=== PATIENT | female | born 1985 | race African-American/Black ===

== ENCOUNTER 2020-07-05 11:19 | Outpatient (REF) | payer OTHER, SELFPAY ==
--- NOTE | 2020-07-05 | US_ITS ---
EXAMINATION:US transvaginal, US pelvic complete CLINICAL INFORMATION: Reason for Exam PELVIC AND PERINEAL PAIN COMPARISON: No priors available. LMP: 06/05/2020 FINDINGS: UTERUS: Uterus is anteverted retroflexed. Size: 11.1 x 3.5 x 5.7 cm. Uterine mass: There is no uterine mass. Cervix: There are nabothian cysts otherwise Grossly unremarkable. Endometrium: No ultrasound evidence of endometrial lesion. endometrial thickness measures 0.9 cm ADNEXA: Normal Right ovary: Normal in size. Left ovary: Normal in size. FREE FLUID: Trace amount of free fluid. OTHER FINDINGS: None IMPRESSION: Normal pelvic ultrasound. No ultrasound explanation for patient's pain symptoms.
== END 2020-07-05 11:20 | disposition home or self-care (01) ==
LOC: HO.US 11:19
PROVIDERS: PCP Pediatrics; Visit Provider Pediatrics
DX: R10.2 Pelvic and perineal pain (principal); N97.9 Female infertility, unspecified
CPT/HCPCS: 76830; 76856

== ENCOUNTER 2023-04-09 09:43 | Outpatient (REF) | payer OTHER, SELFPAY ==
[2023-04-09 14:59] LABS: TSH reflex Free T4 7.53 uIU/mL (0.32-4.0); Vitamin D 25-OH Total 24.1 ng/mL (>30)
== END 2023-04-09 09:44 | disposition home or self-care (01) ==
LOC: HO.CHCLDS 09:43
PROVIDERS: Visit Provider Pediatrics
DX: E55.9 Vitamin D deficiency, unspecified (principal); E03.9 Hypothyroidism, unspecified
CPT/HCPCS: 36415; 82306; 84439; 84443

== ENCOUNTER 2024-05-20 10:04 | Outpatient (REF) | payer OTHER, SELFPAY ==
[2024-05-20 14:40] LABS: MANUAL DIFF FLAG NO
[2024-05-20 14:48] LABS: Basophils Percent Auto 0.5 % (0-2); Eosinophils Absolute Auto 0.3 X10*3/uL (0.0-0.4); Eosinophils Percent Auto 3.3 % (0-4); Hematocrit 40.2 % (37.0-47.0); Hemoglobin 13.2 g/dl (12.0-16.0); Imm Gran Abs Auto 0.02 X10*3/uL (0.00-0.03); Imm Gran Pct Auto 0.3 % (0.0-0.4); Lymphocytes Absolute Auto 2.4 X10*3/uL (1.2-4.9); Lymphocytes Percent Auto 30.5 % (20-40); Mean Corpuscular HGB Conc 32.8 g/dl (31.0-35.0); Mean Corpuscular Hemoglobin 29.1 pg (27.0-33.0); Mean Corpuscular Volume 88.5 fL (80.0-98.0); Mean Platelet Volume 11.8 fL (9.4-12.3); Monocytes Absolute Auto 0.5 X10*3/uL (0.1-1.2); Monocytes Percent Auto 6.4 % (2-11); Neutrophils Absolute Auto 4.7 x10*3/uL (2.0-8.3); Platelet Count 324 X10*3/uL (160-400); Red Blood Count 4.54 X10*6/uL (4.20-5.50); Red Cell Distribution Width 13.2 % (11.0-16.0)
[2024-05-20 15:11] LABS: Alanine Aminotransferase 43 U/L (0-31); Albumin Level 4.2 g/dL (3.5-5.0); Alkaline Phosphatase 61 U/L (39-117); Anion Gap 13 (12-20); Aspartate Amino Transferase 26 U/L (5-31); Bilirubin Direct 0.3 mg/dL (0.0-0.5); Bilirubin Total 0.8 mg/dL (0.0-1.0); Blood Urea Nitrogen 10 mg/dL (9-16); Calcium 9.5 mg/dL (8.4-10.2); Carbon Dioxide 27 mmol/L (22-29); Chloride 102 mmol/L (96-108); Cholesterol 194 mg/dL (<200); Estimated Glomerular Filt Rate > 60; Glucose Random 92 mg/dL (60-115); HDL Cholesterol 39 mg/dL (>40); LDL Cholesterol Calculated 136 mg/dL (<100); Potassium 3.5 mmol/L (3.3-5.1); Sodium 138 mmol/L (135-145); Total Protein 7.7 g/dL (6.5-8.0); Triglycerides 99 mg/dL (<150)
[2024-05-20 15:19] LABS: TSH reflex Free T4 3.42 uIU/mL (0.32-4.0); Vitamin D 25-OH Total 38.8 ng/mL (>30)
== END 2024-05-20 10:05 | disposition home or self-care (01) ==
LOC: HO.CHCLDS 10:04
PROVIDERS: Visit Provider Pediatrics
DX: R73.03 Prediabetes (principal); E03.9 Hypothyroidism, unspecified; E55.9 Vitamin D deficiency, unspecified
CPT/HCPCS: 36415; 80048; 80061; 80076; 82306; 84443; 85025

== ENCOUNTER 2024-12-07 10:14 | Outpatient (REF) | payer OTHER, SELFPAY ==
[2024-12-07 14:59] LABS: TSH reflex Free T4 3.11 uIU/mL (0.32-4.0)
== END 2024-12-07 10:15 | disposition home or self-care (01) ==
LOC: HO.CHCLDS 10:14
PROVIDERS: Visit Provider Pediatrics
DX: E03.9 Hypothyroidism, unspecified (principal)
CPT/HCPCS: 36415; 84443

== ENCOUNTER 2025-05-12 10:00 | Outpatient (REF) | payer OTHER, SELFPAY ==
--- OUTSIDE RECORDS SUMMARY | 2025-05-12 09:00 | XMS_ITS | Encounter Summary ---
Author Organization [employer] Address [address] [place] [id number] Care Team Providers Care Professional Wrestler Name Role Phone Ceci Tejeda MD Primary Care Provider [phone] Reason for Referral * Medications - Pending Review Specialty Diagnoses / Procedures Referred By Contac t Referred To Contact Diagnoses Obesity due to excess calories with serious comorbidity, unspecified class Ceci Tejeda MD [address] [place] [address] Phone: tel: fax: Referral ID Status Reason Start Date Expiration Date V isits Requested Visits Authorized [id number] Pending Review 1 1 Encounter Details Date Type Department Care Team (Latest Contact Info) Description 05/12/2025 9:00 AM EDT Office Visit [facility] [address] [place] [address] Ceci Tejeda MD [address] [place] [address] Obesity due to excess calories with serious comorbidity, unspecified class (Primary Dx); Acquired hypothyroidism Social History Tobacco Use Types Packs/Day Years Used Date Smoking Tobacco: Never Passive Smoke Exposure: Never Smokeless Tobacco: Never Alcohol Use Standard Drinks/Week Comments Defer 0 (1 standard drink = 0.6 oz pur e alcohol) Depression Answer Date Recorded Patient Health Questionnaire-9 Score 0 10/05/2024 Patient Health Questionnaire-9 Score 0 10/05/2024 Last PHQ-9: Questionnaire Data Not on file 0 10/05/2024 Housing Stability Answer Date Recorded What is your housing situation today? I have daly wood 10/05/[address] you li ve. Do you have problems with any of the following? None of the above 10/05/2024 Food Insecurity Answer Date Recorded Within the past 12 months, y ou worried that your food would run out before you got money to buy more: Never True 10/05/2024 Within the past 12 months,th e food you bought just didn't last and you didn't have enough money to get more: Never True Transportation Answer Date Recorded In the past 12 months, has l ack of transportation kept you from medical appts, meetings, work or from getting things needed for daily living? No 10/05/2024 Utilities Answer Date Recorded In the past 12 months, has t he electric, gas, oil or water company threatened to shut off services in your home? No 10/05/2024 Depression Answer Date Recorded Patient Health Questionnaire-2 Score 0 10/05/2024 Internet Access Answer Date Recorded Internet Access Q1 Yes 10/05/2024 Internet Access Q2 Not on file 10/05/2024 Comments Unknown Sex and Gender Information Value Date Recorded Sex Assigned at Female 07/15/2022 10:16 AM EDT Legal Sex Female 10:16 AM EDT Gender Identity Female 07/15/2022 10:16 AM EDT Sexual Orientation Straight 11/25/2022 10 :08 AM EDT documented as of this encounter Last Filed Vital Signs Vital Sign Reading Time Taken Comments Blood Pressure 112/90 05/12/2025 9:13 AM EDT Pulse 72 05/12/2025 9:13 AM EDT Temperature 36.6 C (97.8 F) 05/12/2025 9:13 AM EDT Respiratory Rate 20 05/12/2025 9:13 AM EDT Oxygen Saturation - - Inhaled Oxygen Concentration - - Weight 102 kg (224 lb) 05/12/2025 9:13 AM EDT Height - - Body Mass Index 40.19 12/07/2024 9:48 AM EDT documented in this encounter Progress Notes * Ceci Tejeda MD - 05/12/2025 9:00 AM EDT Subjective Patient ID: Annabelle Candelario is a 40 y.o. female who presents for f/u . Annabelle is a 40 y/o female patient of mine here for follow up weight and thyroid disorder,labs are up to date.was doing great with slow but steady weight loss on tirzepatide weekly w/o major side effects.She is walking a lot and is eating way more protein then before. Sometimes has to use simethicone for gas relief. Has been on 7.5 mg weekly zepbound for the past 5 months and has only lost 10 lbs so far. Review of Systems Constitutional: Negative for activity change, chills, fever and unexpected weight change. Respiratory: Negative for cough, shortness of breath and wheezing. Cardiovascular: Negative for chest pain, palpitations and leg swelling. Gastrointestinal: Negative for abdominal pain and blood in stool. Endocrine: Negative for polydipsia and polyuria. Genitourinary: Negative for decreased urine volume, difficulty urinating, dysuria and hematuria. Musculoskeletal: Negative for arthralgias and gait problem. Skin: Negative for color change and rash. Neurological: Negative for dizziness and headaches. Hematological: Negative for adenopathy. Psychiatric/Behavioral: Negative for dysphoric mood, hallucinations, sleep disturbance and suicidalideas. The patient is not nervous/anxious. Objective BP (!) 112/90 (BP Location: Left arm, Patient Position: Sitting, BP Cuff Size: Large adult) Pulse 72 Temp 97.8 ??F (36.6 ??C) (Oral) Resp 20 Wt 224 lb (102 kg) BMI 40.19 kg/m?? Physical Exam Vitals reviewed. Constitutional: General: Annabelle is not in acute distress. Appearance: Normal appearance. Annabelle is obese. Annabelle is not ill-appearing. HENT: Head: Normocephalic. Right Ear: Tympanic membrane and ear canal normal. Left Ear: Tympanic membrane and ear canal normal. Nose: Nose normal. Mouth/Throat: Mouth: Mucous membranes are moist. Pharynx: No oropharyngeal exudate or posterior oropharyngeal erythema. Eyes: Extraocular Movements: Extraocular movements intact. Conjunctiva/sclera: Conjunctivae normal. Pupils: Pupils are equal, round, and reactive to light. Cardiovascular: Rate and Rhythm: Normal rate and regular rhythm. Pulses: Normal pulses. Heart sounds: Normal heart sounds. Pulmonary: Effort: Pulmonary effort is normal. No respiratory distress. Breath sounds: Normal breath sounds. No wheezing. Abdominal: Palpations: Abdomen is soft. Musculoskeletal: General: Normal range of motion. Cervical back: Normal range of motion. Skin: General: Skin is warm. Capillary Refill: Capillary refill takes less than 2 seconds. Neurological: General: No focal deficit present. Mental Status: Annabelle is alert and oriented to person, place, and time. Psychiatric: Mood and Affect: Mood normal. Behavior: Behavior normal. Thought Content: Thought content normal. Judgment: Judgment normal. Assessment/Plan Diagnoses and all orders for this visit: Obesity due to excess calories with serious comorbidity, unspecified class Reviewed indications for pharmacotherapy with patient, which is treatment for patient w/ obesity ora patient with a BMI > 27 w/ CV risk factors who have failed lifestyle modifications alone. These are always prescribed in combination with ongoing lifestyle modification; and will be titrated up from the lowest dose. Will increase patient dose of Zepbound to 10 mg weekly given know efficacy. Reviewed mechanism of action with patient. Discussed side effects with patient: nausea, vomiting, diarrhea & risk of pancreatitis. No contraindications identified: , hx of pancreatitis, hx of medullary thyroid cancer or MEN 2. Patient has prior trial of phentermine/Topamax with (inadequate response, adverse reaction, or contraindication to phentermine with or without topiramate) Discussed calorie deficit, recommended reduction of 20-30% of maintenance calories; retail wireless sales representative referral offered. Recommended to decrease soda and sugary beverage consumption. Recommended at least 20 g per meal of protein to assist with satiety. Recommended at least 150 min/week of moderate intensity exercise. Comments: Hasnt lost more then 10 lbs in last 5 months. Continue exercising and eating well. Increase dose to10 mg weekly zepbound.RTC in 3 mos. Orders: - Tirzepatide-Weight Management (Zepbound) 10 MG/0.5ML solution auto-injector; Inject 0.5 mL (10 mg) under the skin 1 (one) time per week. Acquired hypothyroidism Comments: Tfts checked today. Adjust dose of levothyroxine if needed.Continue 150 mcg daily x now. Orders: - TSH W/Reflex to FT4; Future Other orders - cholecalciferol VITAMIN D (Vitamin D-3) 50 MCG (1999 UT) tablet; Take 1 tab orally daily - levothyroxine (Synthroid) 150 MCG tablet; Take 150 mcg orally every morning documented in this encounter Plan of Treatment Scheduled Orders Name Type Priority Associated Diagnoses Orde r Schedule TSH W/Reflex to FT4 Lab Routine Acquired hypothyroidism Expected: 05/12/2025 (Approximate), Expires: 05/12/2026 documented as of this encounter Visit Diagnoses Diagnosis Obesity due to excess calories with serious comorbidity, unspecified class- Primary Acquired hypothyroidism Unspecified hypothyroidism documented in this encounter Additional Health Concerns Assessment Noted Time PHQ-9 Depression Total Score: 0 10/05/19 25 9:23 AM EST documented as of this encounter Care Teams Professional Wrestler Relationship Specialty Start Date End Date Ceci Tejeda MD [address] [place] [address] PCP - General Family Medicine 09/15/18 documented as of this encounter
--- OUTSIDE RECORDS SUMMARY | 2025-05-12 11:10 | XMS_ITS | Encounter Summary ---
Author Organization [employer] Address [address] [place] [id number] Care Team Providers Care Check Clerk Name Role Phone Ceci Tejeda MD Primary Care Provider [phone] Reason for Visit * Reason Onset Date Comments Med Refill 04/25/2023 Encounter Details Date Type Department Care Team ([facility] Contact Info) Description 04/25/2023 Refill [facility] [address] [place] [address] Ceci Tejeda MD [address] [place] [address] Social History Tobacco Use Types Packs/Day Years Used Date Smoking Tobacco: Never Passive Smoke Exposure: Never Smokeless Tobacco: Never Alcohol Use Standard Drinks/Week Comments Defer 0 (1 standard drink = 0.6 oz pur e alcohol) Depression Answer Date Recorded Patient Health Questionnaire-9 Score 11 11/07/2022 Depression Answer Date Recorded Patient Health Questionnaire-2 Score 2 11/07/2022 Comments Unknown Sex and Gender Information Value Date Recorded Sex Assigned at Female 07/15/2022 10:16 AM EDT Legal Sex Female 10:16 AM EDT Gender Identity Female 07/15/2022 10:16 AM EDT Sexual Orientation Straight 11/25/2022 10 :08 AM EDT documented as of this encounter Plan of Treatment Not on file documented as of this encounter Visit Diagnoses Not on filedocumented in this encounter Additional Health Concerns Assessment Noted Time PHQ-9 Depression Total Score: 11 023 11:33 AM EST documented as of this encounter Care Teams Check Clerk Relationship Specialty Start Date End Date Ceci Tejeda MD [address] [place] [id number] PCP - General Family Medicine 09/15/18 documented as of this encounter
--- OUTSIDE RECORDS SUMMARY | 2025-05-12 11:10 | XMS_ITS | Clinical Summary ---
Author Organization [employer] Address [address] [place] [address] 7 [place] [address] Care Team Providers Care Cooperage Shop Supervisor Name Role Phone Ceci Tejeda MD Primary Care Provider [phone] Allergies No known active allergies Medications ibuprofen 800 MG tabletIndicatio ns:Dysmenorrhea Take 1 tablet (800 mg) by mouth 3 times daily. 90 tablet 02/03/20 25 Active topiramate 50 MG tablet Take 1 tab orally daily 90 tablet 1 02/10/20 25 Active cholecalciferol VITAMIN D (Vitamin D-3) 50 MCG (1999) tablet Take 1 tab orally daily 90 tablet 3 05/12/20 25 Active levothyroxine (Synthroid) 150 MCG tablet Take 150 mcg orally every morning 30 tablet 05/12/20 25 Active Tirzepatide-Carter ght Management (Zepbound) 10 MG/0.5ML solution auto-injectorIn dications:Obesi ty due to excess calories with serious comorbidity, unspecified class Inject 0.5 mL (10 mg) under the skin 1 (one) time per week. 2 mL 05/12/20 25 Active cholecalciferol VITAMIN D (Vitamin D-3) 50 MCG (1999 UT) tablet Take 1 tab orally daily 90 tablet 3 05/20/20 24 025 Discontinued(Re order (will not trigger notification to Pharmacy)) levothyroxine (Synthroid) 150 MCG tablet Take 150 mcg orally every morning 30 tablet 5 07/21/20 24 025 Discontinued(Re order (will not trigger notification to Pharmacy)) nitrofurantoin, macrocrystal-mo nohydrate, (Macrobid) 100 MG capsule Take 1 capsule orally bid for 3 days 6 capsule 10/05/19 25 025 Discontinued(Th erapy completed) Tirzepatide 7.5 MG/0.5ML solution auto-injectorIn dications:Class 3 severe obesity due to excess calories with body mass index (BMI) of 45.0 to 49.9 in adult, unspecified whether serious comorbidity present Inject 7.5 mg under the skin 1 (one) time per week. 2 mL 2 03/31/20 25 025 Discontinued(Re order (will not trigger notification to Pharmacy)) Tirzepatide 7.5 MG/0.5ML solution auto-injectorIn dications:Class 3 severe obesity due to excess calories with body mass index (BMI) of 45.0 to 49.9 in adult, unspecified whether serious comorbidity present Inject 7.5 mg under the skin 1 (one) time per week. 2 mL 2 04/26/20 25 025 Discontinued(Th erapy completed) Tirzepatide 10 MG/0.5ML solution auto-injectorIn dications:Obesi ty due to excess calories with serious comorbidity, unspecified class Inject 10 mg under the skin 1 (one) time per week. 2 mL 5 05/12/20 25 025 Discontinued(En tered in error) Active Problems Problem Noted Date Diagnosed Date Dysuria 07/02/2024 Raphael hematuria 07/02/2024 Swelling of vagina 07/02/2024 Prediabetes 02/11/2023 Adjustment disorder with anxious mood 07/03/2018 Acquired hypothyroidism 07/30/2012 Obesity 04/30/2012 Vitamin D deficiency 04/30/2012 Gallbladder calculus 04/30/2012 Gastroesophageal reflux disease 04/30/2012 Encounters Date Type Department Care Team Description 05/12/2025 9:00 AM EDT Office Visit [facility] [address] [place] [address] Ceci Tejeda MD Obesity due to excess calories with serious comorbidity, unspecified class (Primary Dx); Acquired hypothyroidism 05/12/2025 Travel 05/11/2025 Telephone [facility] [address] [place] [address] Ceci Tejeda MD chart prep 05/11/2025 Travel 05/06/2025 Telephone [facility] [address] [place] [address] Ceci Tejeda MD Prior Authorization 04/25/2025 Refill [facility] [address] [place] [address] Ceci Tejeda MD Class 3 severe obesity due to excess calories with body mass index (BMI) of 45.0 to 49.9 in adult, unspecified whether serious comorbidity present 03/31/2025 Orders Only [facility] [address] [place] [address] Ceci Tejeda MD Class 3 severe obesity due to excess calories with body mass index (BMI) of 45.0 to 49.9 in adult, unspecified whether serious comorbidity present 03/28/2025 Refill [facility] [address] [place] [address] Ceci Tejeda MD Class 3 severe obesity due to excess calories with body mass index (BMI) of 45.0 to 49.9 in adult, unspecified whether serious comorbidity present 02/28/2025 Refill [facility] [address] [place] [address] Ceci Tejeda MD Class 3 severe obesity due to excess calories with body mass index (BMI) of 45.0 to 49.9 in adult, unspecified whether serious comorbidity present 02/09/2025 11:00 AM EDT Office Visit [facility] [address] [place] [address] Ceci Tejeda MD Acquired hypothyroidism (Primary Dx); Dietary counseling; Exercise counseling; Class 3 severe obesity without serious comorbidity with body mass index (BMI) of 40.0 to 44.9 in adult, unspecified obesity type 02/09/2025 Travel from Last 3 Months Immunizations Immunization Administration Dates Next Due DTaP 05/16/1990, 8,1986,1985,1986 Hep B, Adolescent or Pediatric 10/16/1999,1998,03/15/1999 Hib (HbOC) 03/15/1989 IPV 05/16/1990, 8,1986,1985,1986 Influenza injectable quadriv alent IIV4 with preservative 11/07/2022,07/03/2018,11/24/2017 Influenza injectable quadriv alent preservative free 08/23/2021,06/27/2020,08/22/2016 Influenza, IIV3, injectable 05/31/2014 Influenza, Split (incl. adriana fied surface antigen) 07/30/2012 Influenza, seasonal, injecta ble, preservative free 07/21/2024 MMR 05/16/1990,06/15/1987 Pfizer Covid-19 Vaccine 12+ 07/21/2024 TD (adult), 2 Lf tetanus tox oid, preservative free, adsorbed 05/20/2001,05/22/2000 Tdap 03/30/2015 Varicella 06/30/2000,05/30/2000 Social History Tobacco Use Types Packs/Day Years Used Date Smoking Tobacco: Never Passive Smoke Exposure: Never Smokeless Tobacco: Never Tobacco Cessation:Counseling Given: Not Answered Alcohol Use Standard Drinks/Week Comments Defer 0 [...] Orientation Straight 11/25/2022 10 :08 AM EDT Last Filed Vital Signs Vital Sign Reading Time Taken Comments Blood Pressure 112/90 05/12/2025 9:13 AM EDT Pulse 72 05/12/2025 9:13 AM EDT Temperature 36.6 C (97.8 F) 05/12/2025 9:13 AM EDT Respiratory Rate 20 05/12/2025 9:13 AM EDT Oxygen Saturation 98% 12/07/2024 9:48 AM EDT Inhaled Oxygen Concentration - - Weight 102 kg (224 lb) 05/12/2025 9:13 AM EDT Height 159 cm (5' 2.6 ) 12/07/2024 9:48 AM EDT Body Mass Index 40.19 12/07/2024 9:48 AM EDT Plan of Treatment Health Maintenance Due Date Last Done Comments HIV Screening 1986 Family Planning (PISQ) 2001 HPV Vaccines (1 - 3-dose series) 2001 Hepatitis C Screening 2004 Dental Oral Exam 12/10/2024 06/11/2024, , 06/08/2018, Additional history exists Dental Prophylaxis 12/10/2024 06/11/2024, 0 06/08/2018, 12/04/2017, Additional history exists DTaP/Tdap/Td Vaccines (7 - Td or Tdap) 03/30/2025 03/30/2015, 05/20/2001, 05/22/2000, Additional history exists Influenza Vaccine (#1) 2025 , 11/07/2022, 08/23/2021, Additional history exists Diabetes: Hemoglobin A1C 05/20/2025 024, 11/07/2022, 08/24/2021, Additional history exists Dental X-Ray: Bitewings 06/12/2025 06/11/20 24, 01/20/2024, 03/31/2023, Additional history exists Alcohol/Substance Use Screening 10/05/2025 10/05/2024 Depression Screening 10/05/2025 10/05/2024, 10/05/19 25 SDOH Screening 10/05/2025 10/05/2024 Pap Smear 12/18/2025 12/18/2022, 03/03/2020 Dental X-Ray: Full Mouth 04/01/2026 03/31/2023, 11/14 Disability Screening 05/11/2026 05/11/2025 Tobacco Screening 05/12/2026 05/12/2025 Cervical Cancer Screening 12/19/2027 HPV/Cotest 12/19/2027 12/18/2022 Lipid Panel 05/20/2029 05/20/2024, 10/17, 08/24/2021, Additional history exists Zoster Vaccines (1 of 2) 2036 RSV Patients and Patients Aged 60 years or older (1 - 1-dose 75+ series) 2061 HIB Vaccines Completed 03/15/1989 IPV Vaccines Completed 05/16/1990, 0309/1987, 1986, Additional history exists Hepatitis B Vaccines Completed 10/16/1999, 05/16/1999, 03/15/1999 COVID-19 Vaccine Completed 07/21/2024, , 02/02/2021, Additional history exists Hepatitis A Vaccines Aged Out No long er eligible based on patient's age to complete this topic Meningococcal B Vaccine Aged Out No l onger eligible based on patient's age to complete this topic Meningococcal Vaccine Aged Out No sky milagro eligible based on patient's age to complete this topic Pneumococcal Vaccine: Pediatrics (0 to 5 Years) and At-Risk Patients (6 to 49) Years Aged Out No longer eligible based on patient's age to complete this topic RSV under 20 months Aged Out No longe r eligible based on patient's age to complete this topic Rotavirus Vaccines Aged Out No longer eligible based on patient's age to complete this topic Procedures Procedure Name Priority Date/Time Associated Diagnosis Comments PROPHYLAXIS - ADULT Routine 06/11/2024 9 :00 AM EDT BITEWINGS - 4 RADIOGRAPHIC IMAGES Routine 06/11/2024 9:00 AM EDT PERIODIC ORAL EVALUATION - ESTABLISHED PATIENT Routine 06/11/2024 9:00 AM EDT LIPID PANEL, STANDARD Routine 05/20/2024 10:14 AM EDT Prediabetes Acquired hypothyroidism Vitamin D deficiency POCT GLYCATED HEMOGLOBIN, TOTAL Routine 05/20/2024 9:31 AM EDT Prediabetes INTRAORAL - COMPLETE SERIES OF RADIOGRAPHIC IMAGES Routine 03/31/2023 3:00 PM EDT IMAGE-GUIDED PAP W/AGE BASED SCR,W/CT/NG/TRICH Routine 12/18/2022 12:15 PM EDT Gynecologic exam normal from Last 3 Months or Most Recently Relevant to Health Maintenance Results * (ABNORMAL) Lipid Panel, Standard (05/20/2024 10:14 AM EDT) Triglycerides 99 <150 mg/dL [facility] Comment:Desirable Triglyceri de: less than 150 mg/dLBorderline High Triglyceride 150-199 mg/dLHigh Triglyceride: 200-499 mg/dLVery High Triglyceride: greater than or equal to 5OO mg/dL Cholesterol 194 <200 mg/dL [facility] Comment:Desirable Cholestero l: less than 200 mg/dLBorderline High Cholesterol: 200-239 mg/dLHigh Cholesterol: greater than 239 mg/dL LDL Cholesterol Calculated 136(H) <100 mg/dL [facility] Comment:Desirable LDL: less than 100 mg/dLNear Optimal/Above Optimal LDL: 110- 129 mg/dLBorderline High LDL: 130-159 mg/dLHigh LDL: 160-189 mg/dLVery High LDL: greater than or equal to 190 mg/dL HDL Cholesterol 39(L) >40 mg/dL [facility] Comment:Desirable HDL: great er than 40 mg/dL Note: This HDL assay may give artificially low results in patients with liver disease. Blood Venous blood specimen / Unknown 05/20/2024 10:14 AM EDT 05/20/2024 2:34 PM EDT us Ceci Tejeda MD LAB BLOOD ORDERABLES Final Re sult [facility] [address] [place] [address] [phone] * (ABNORMAL) POCT HGB A1C (05/20/2024 9:31 AM EDT) Hemoglobin A1C 6.1(A) 4.0 - 6.0 % QC Media Lot # [id number] Lot# Expiration Date 42,62 Blood 05/20/2024 9:31 AM EDT us Ceci Tejeda MD POINT OF CARE TEST ENTER/EDIT ORDERABLES Final Result * Image-Guided Pap with Age-Based Screening??with CT/NG,??Trichomonas (12/18/2022 12:15 PM EDT) Comment [facility] Comment: This order for age-based cervical cancer and STI screening follows ACOG guidelines(PB 168, 140, UGO094). See individual assays for performing site location. Clinical Information: None given [employer] LMP: 11/27/22 [facility] [place] [employer] Prev. PAP: YES [facility] Prev. BX: NONE GIVEN [employer] SOURCE: Cervix [facility] Statement Of Adequacy: [facility] Comment: Satisfactory for evaluation. Endocervical/transformation zone component absent. Interpretation/Re sult: Negative for intraepithelial lesion or malignancy. [facility] Infection Shift in vaginal mor suggestive of bacterial vaginosis. [facility] COMMENT: This Pap test has been evaluated with computer assisted technology. [facility] Patient Information Coordinator: Qu Oxagent Comment: YP, CT(ASCP) CT screening location: [facility] [address] (Always Message) [employer] [place] [employer] Comment: EXPLANATORY NOTE: The Pap is a screening test for cervical cancer. It is not a diagnostic test and is subject to false negative and false positive results. It is most reliable when a satisfactory sample, regularly obtained, is submitted with relevant clinical findings and history, and when the Pap result is evaluated along with historic and current clinical information. HPV nRNA E6/E7 Not Detected Not Detected [facility] Comment: Methodology: Sole Cutter-Mediated Amplification This assay detects E6/E7 viral messenger RNA (mRNA) from 14 high-risk HPV types (16,18,31,33,35,39,45,51,52,56,58,59,66,68). Cervical sources are required for HPV testing. If a vaginal source from a patient who has had a total hysterectomy with removal of cervix was submitted, please contact the testing laboratory for alternative testing options. For additional information, please refer to http://gopogo.BCNX/faq/ZNM741e7 (This link if provided for information/ educational purposes only.) Chlamydia trachomatis RNA, TMA, Urogenital NOT DETECTED NOT DETECTED [facility] Neisseria gonorrhoeae RNA, TMA, Urogenital NOT DETECTED NOT DETECTED [facility] [place] [employer] (Always Message) [employer] [place] [employer] Comment: The analytical performance characteristics of this assay, when used to test SurePath(TM) specimens have been determined by [facility]. The modifications have not been cleared or approved by the FDA. This assay has been validated pursuant to the CLIA regulations and is used for clinical purposes. For additional information, please refer to https://gopogo.BCNX/faq/UBN219 (This link is being provided for information/ educational purposes only.) Trichomonas vaginalis, QL, TMA, PAP Vial NOT DETECTED NOT DETECTED [facility] Comment: The analytical performance characteristics of this assay have been determined by [facility]. The modifications have not been cleared or approved by the FDA. This assay has been validated pursuant to the CLIA regulations and is used for clinical purposes. For additional information, please refer to http://gopogo.BCNX/ faq/Trichomonastma (This link is being provided for information/ educational purposes only.) Specimen from uterine cervix (specimen) 12/18/2022 12:15 PM EDT 12/19/2022 11:13 PM EDT Ceci Tejeda MD LAB CYTOLOGY ORDERABLES Final Result [facility] [address], [place] [address] [facility] [address] [place] [address] from Last 3 Months or Most Recently Relevant to Health Maintenance Insurance [facility] DENTAL - HSN PARTIAL (MEDICAID) DENTAL - [employer] DENTAL PPO Care Teams Cooperage Shop Supervisor Relationship Specialty Start Date End Date Ceci Tejeda MD [address] [place] [address] PCP - General Family Medicine 09/15/18
--- OUTSIDE RECORDS SUMMARY | 2025-05-12 11:10 | XMS_ITS | Encounter Summary ---
Author Organization [employer] Address [address] [place] [address] [place] [address] Care Team Providers Care Monotypist Name Role Phone Ceci Tejeda MD Primary Care Provider [phone] Reason for Visit * Reason Onset Date Comments Prior Authorization 05/06/2025 Encounter Details Date Type Department Care Team ([facility] Contact Info) Description 05/06/2025 Telephone [facility] [address] [place] [address] Ceci Tejeda MD [address] [place] [address] Prior Authorization Social History Tobacco Use Types Packs/Day Years [...] AM EDT documented as of this encounter Miscellaneous Notes * Telephone Encounter - Twyla Rose LPN - 05/10/2025 9:47 AM EDT The PA will be finalized on the appointment scheduled for 05/12/25, to obtain additional documentation. Tc from pt stating script for Tirzepatide 7.5 MG/0.5ML solution auto-injector requires a prior authorization. * Telephone Encounter - Janine Holden - 05/06/2025 11:30 AM EDT Tc from pt stating script for Tirzepatide 7.5 MG/0.5ML solution auto-injector requires a prior authorization. documented in this encounter Plan of Treatment Not on file documented as of this encounter Visit Diagnoses Not on filedocumented in this encounter Additional Health Concerns Assessment Noted Time PHQ-9 Depression Total Score: 0 10/05/19 9:23 AM EST documented as of this encounter Care Teams Monotypist Relationship Specialty Start Date End Date Ceci Tejeda MD [address] [place] [address] PCP - General Family Medicine 09/15/18 documented as of this encounter
--- OUTSIDE RECORDS SUMMARY | 2025-05-12 11:10 | XMS_ITS | Encounter Summary ---
Author Organization [employer] Address [address] [place] [address] 7 [place] [address] Care Team Providers Care Valve Fitter Name Role Phone Ceci Tejeda MD Primary Care Provider [phone] Reason for Visit * Reason Onset Date Comments Med Refill 07/03/2024 Encounter Details Date Type Department Care Team ([facility] Contact Info) Description 07/03/2024 Refill [facility] [address] [place] [address] Ceci Tejeda MD [address] [place] [address] Dysmenorrhea Social History Tobacco Use Types Packs/Day Years Used Date Smoking Tobacco: Never Passive Smoke Exposure: Never Smokeless Tobacco: Never Alcohol Use Standard Drinks/Week Comments Defer 0 (1 standard drink = 0.6 oz pur e alcohol) Depression Answer Date Recorded Patient Health Questionnaire-9 Score 11 11/07/2022 Housing Stability Answer Date Recorded What is your housing situation today? I have daly wood 07/15/[address] you li ve. Do you have problems with any of the following? None of the above 07/15/2023 Food Insecurity Answer Date Recorded Within the past 12 months, y ou worried that your food would run out before you got money to buy more: Never True 07/15/2023 Within the past 12 months,th e food you bought just didn't last and you didn't have enough money to get more: Never True Transportation Answer Date Recorded In the past 12 months, has l ack of transportation kept you from medical appts, meetings, work or from getting things needed for daily living? No 07/15/2023 Utilities Answer Date Recorded In the past 12 months, has t he electric, gas, oil or water company threatened to shut off services in your home? No 07/15/2023 Depression Answer Date Recorded Patient Health Questionnaire-2 [...] as of this encounter Visit Diagnoses Diagnosis Dysmenorrhea documented in this encounter Additional Health Concerns Assessment Noted Time PHQ-9 Depression Total Score: 11 023 11:33 AM EST documented as of this encounter Care Teams Valve Fitter Relationship Specialty Start Date End Date Ceci Tejeda MD [address] [place] [address] PCP - General Family Medicine 09/15/18 documented as of this encounter
--- OUTSIDE RECORDS SUMMARY | 2025-05-12 11:10 | XMS_ITS | Encounter Summary ---
Author Organization [employer] Address [address] [place] [address] [address] [place] [address] Care Team Providers Care Occ Ther Name Role Phone Ceci Tejeda MD Primary Care Provider [phone] Reason for Visit * Reason Onset Date Comments Med Refill 03/28/2025 Encounter Details Date Type Department Care Team ([facility] Contact Info) Description 03/28/2025 [facility]ill [facility] [address] [place] [address] Ceci Tejeda MD [address] [place] [address] Class 3 severe obesity due to excess calories with body mass index (BMI) of 45.0 to 49.9 in adult, unspecified whether serious comorbidity present Social History Tobacco Use Types Packs/Day Years [...] as of this encounter Visit Diagnoses Diagnosis Class 3 severe obesity due to excess calories with body mass index (BMI) of 45.0 to 49.9 in adult, unspecified whether serious comorbidity present documented in this encounter Additional Health Concerns Assessment Noted Time PHQ-9 Depression Total Score: 0 10/05/19 25 9:23 AM EST documented as of this encounter Care Teams Occ Ther Relationship Specialty Start Date End Date Ceci Tejeda MD [address] [place] [address] PCP - General Family Medicine 09/15/18 documented as of this encounter
--- OUTSIDE RECORDS SUMMARY | 2025-05-12 11:10 | XMS_ITS | Encounter Summary ---
Author Organization [employer] Address [address] [place] [address] [address] [place] [address] Care Team Providers Care Supervisor Bottle Machines Name Role Phone Ceci Tejeda MD Primary Care Provider [phone] Encounter Details Date Type Department Care Team (Latest Contact Info) Description 05/12/2025 Travel Social History Tobacco Use Types Packs/Day Years [...] documented as of this encounter Care Teams Supervisor Bottle Machines Relationship Specialty Start Date End Date Ceci Tejeda MD [address] [place] [address] PCP - General Family Medicine 09/15/18 documented as of this encounter
--- OUTSIDE RECORDS SUMMARY | 2025-05-12 11:10 | XMS_ITS | Encounter Summary ---
Author Organization [employer] Address [address] [place] [address] [place] [address] Care Team Providers Care Edm Operator Name Role Phone Ceci Tejeda MD Primary Care Provider [phone] Reason for Visit * Reason Onset Date Comments Med Refill 03/19/2023 Encounter Details Date Type Department Care Team ([facility] st Contact Info) Description 03/19/2023 Refill [facility]EDS [address] [place] [address] Ceci Tejeda MD [address] [place] [address] Dysmenorrhea Social History Tobacco Use Types Packs/Day Years Used Date Smoking Tobacco: Never Passive Smoke Exposure: Never Smokeless Tobacco: Never Depression Answer Date Recorded Patient Health Questionnaire-9 Score 11 11/07/2022 Depression Answer Date Recorded Patient Health Questionnaire-2 Score 2 11/07/2022 Comments Unknown Sex and Gender Information Value Date Recorded Sex Assigned at Female 07/15/2022 10:16 AM EDT Legal Sex Female 10:16 AM EDT Gender Identity Female 07/15/2022 10:16 AM EDT Sexual Orientation Straight 11/25/2022 10 :08 AM EDT COVID-19 Exposure Response Date Recorded In the last 10 days, have yo u been in contact with someone who was confirmed or suspected to have Coronavirus/COVID-19? No / Unsure 03/04/2023 5:01 PM EDT documented as of this encounter Plan of Treatment Not on file documented as of this encounter Visit Diagnoses Diagnosis Dysmenorrhea documented in this encounter Additional Health Concerns Assessment Noted Time PHQ-9 Depression Total Score: 11 023 11:33 AM EST documented as of this encounter Care Teams Edm Operator Relationship Specialty Start Date End Date Ceci Tejeda MD [address] [place] [address] PCP - General Family Medicine 09/15/18 documented as of this encounter
--- OUTSIDE RECORDS SUMMARY | 2025-05-12 11:10 | XMS_ITS | Encounter Summary ---
Author Organization [employer] Address [address] [place] [address] 7 [place] [address] Care Team Providers Care Punch Press Setter Name Role Phone Ceci Tejeda MD Primary Care Provider [phone] Reason for Visit * Reason Comments Med Refill Encounter Details Date Type Department Care Team ([facility] Contact Info) Description 08/17/2024 Refill [facility]S [address] [place], [place] [id number] Ceci Tejeda MD [address] [place] [address] Class 3 severe obesity due to excess calories with body mass index (BMI) of 45.0 to 49.9 in adult, unspecified whether serious comorbidity present (CMS/HCC); Prediabetes; Acquired hypothyroidism Social History Tobacco Use Types [...] in adult, unspecified whether serious comorbidity present Prediabetes Other abnormal glucose Acquired hypothyroidism Unspecified hypothyroidism documented in this encounter Additional Health Concerns Assessment Noted Time PHQ-9 Depression Total Score: 11 023 11:33 AM EST documented as of this encounter Care Teams Punch Press Setter Relationship Specialty Start Date End Date Ceci Tejeda MD [address] [place] [address] PCP - General Family Medicine 09/15/18 documented as of this encounter
--- OUTSIDE RECORDS SUMMARY | 2025-05-12 11:10 | XMS_ITS | Clinical Summary ---
Author Organization [employer] [facility] ity Address [address] [place] [address] Care Team Providers Care Gasket Supervisor Name Role Phone Unavailable Primary Care Provider Unavailabl e Social History Tobacco Use Types Packs/Day Years Used Date Smoking Tobacco: Never Assessed Comments Unknown Sex and Gender Information Value Date Recorded Sex Assigned at Not on file Legal Sex Female 4:55 AM EST Gender Identity Not on file Sexual Orientation Not on file Plan of Treatment Health Maintenance Due Date Last Done Comments DTaP,Tdap,and Td Vaccines (1 - Tdap) 2005 Hepatitis B Vaccines (1 of 3 - 19+ 3-dose series) 2005 Cervical Cancer Screening: P ap Smear 2007 COVID-19 Vaccine ( - 2023-2 5 season) 2024 Depression Screening 09/15/2024 Influenza Vaccine (#1) 2025 HIB Vaccines Aged Out No longer eligi ble based on patient's age to complete this topic HPV Vaccines Aged Out No longer eligi ble based on patient's age to complete this topic Hepatitis A Vaccines Aged Out No long er eligible based on patient's age to complete this topic IPV Vaccines Aged Out No longer eligi ble based on patient's age to complete this topic MMR Vaccines Aged Out No longer eligi ble based on patient's age to complete this topic Meningococcal ACWY Vaccine Aged Out N o longer eligible based on patient's age to complete this topic Meningococcal B Vaccine Aged Out No l onger eligible based on patient's age to complete this topic Pneumococcal Vaccine: Pediat rics (0 to 5 Years) and At-Risk Patients (6 to 49 Years) Aged Out No longer eligible b ased on patient's age to complete this topic RSV Immunization Patients Un jenelle 20 months Aged Out No longer eligible b ased on patient's age to complete this topic Varicella Vaccines Aged Out No longer eligible based on patient's age to complete this topic
--- OUTSIDE RECORDS SUMMARY | 2025-05-12 11:10 | XMS_ITS | Encounter Summary ---
Author Organization [employer] Address [address] [place] [address] [address] [place] [address] Care Team Providers Care Nurse Researcher Name Role Phone Ceci Tejeda MD Primary Care Provider [phone] Reason for Visit * Reason Onset Date Comments chart prep 05/11/2025 Encounter Details Date Type Department Care Team ([facility] Contact Info) Description 05/11/2025 Telephone [facility] CH[facility] MED & PEDS [address] [place] [address] Ceci Tejeda MD [address] [place] [address] chart prep Social History Tobacco Use Types Packs/Day Years [...] encounter Miscellaneous Notes * Telephone Encounter - Yaneth Jarquin RN - 05/11/2025 3:30 PM EDT Chart Prep Labs: done Images: not applicable Referrals: not applicable Vaccines due: Tdap Screenings: STI screening Overdue care gaps: Not applicable documented in this encounter Plan of Treatment Not on file documented as of this encounter Visit Diagnoses Not on filedocumented in this encounter Additional Health Concerns Assessment Noted Time PHQ-9 Depression Total Score: 0 10/05/19 25 9:23 AM EST documented as of this encounter Care Teams Nurse Researcher Relationship Specialty Start Date End Date Ceci Tejeda MD [address] [place] [address] PCP - General Family Medicine 09/15/18 documented as of this encounter
--- OUTSIDE RECORDS SUMMARY | 2025-05-12 11:10 | XMS_ITS | Encounter Summary ---
Author Organization [employer] Address [address] [place] [address] [address] [place] [address] Care Team Providers Care Director Enterprise Systems Name Role Phone Ceci Tejeda MD Primary Care Provider [phone] Reason for Visit * Reason Comments Med Refill Encounter Details Date Type Department Care Team ([facility] Contact Info) Description 05/16/2023 Refill [facility] CH[facility] MED & PEDS [address] [place], [place] [id number] Yudith Hernandez MD [address] [place] [address] Acquired hypothyroidism Social History Tobacco Use Types [...] as of this encounter Visit Diagnoses Diagnosis Acquired hypothyroidism Unspecified hypothyroidism documented in this encounter Additional Health Concerns Assessment Noted Time PHQ-9 Depression Total Score: 11 023 11:33 AM EST documented as of this encounter Care Teams Director [employer] Systems Relationship Specialty Start Date End Date Ceci Tejeda MD [address] [place] [address] PCP - General Family Medicine 09/15/18 documented as of this encounter
--- OUTSIDE RECORDS SUMMARY | 2025-05-12 11:10 | XMS_ITS | Encounter Summary ---
Author Organization [employer] Address [address] [place] [address] [address] [place] [address] Care Team Providers Care Entry Level Java Developer Name Role Phone Ceci Tejeda MD Primary Care Provider [phone] Reason for Visit * Reason Onset Date Comments Med Refill 02/28/2025 Encounter Details Date Type Department Care Team ([facility] Contact Info) Description 02/28/2025 Refill [facility] CHC MED & PEDS [address] [place] [address] Ceci Tejeda MD [address] [place] [address] Class 3 severe obesity due to excess [...] documented as of this encounter Care Teams Entry Level Java Developer Relationship Specialty Start Date End Date Ceic Tejeda MD [address] [place] [address] PCP - General Family Medicine 09/15/18 documented as of this encounter
--- OUTSIDE RECORDS SUMMARY | 2025-05-12 11:11 | XMS_ITS | Encounter Summary ---
Author Organization [employer] Address [address] [place] [address] [address] [place] [address] Care Team Providers Care Head Tennis Coach Name Role Phone Ceci Tejeda MD Primary Care Provider [phone] Encounter Details Date Type Department Care Team (Latest Contact Info) Description 05/11/2025 Travel Social History Tobacco Use Types Packs/Day [...] documented as of this encounter Care Teams Head Tennis Coach Relationship Specialty Start Date End Date Ceci Tejeda MD [address] [place] [address] PCP - General Family Medicine 09/15/18 documented as of this encounter
--- OUTSIDE RECORDS SUMMARY | 2025-05-12 11:11 | XMS_ITS | Encounter Summary ---
Author Organization [employer] Address [address] [place] [address] [place] [address] Care Team Providers Care Blueprint Tracer Name Role Phone Ceci Tejeda MD Primary Care Provider [phone] Reason for Visit * Reason Onset Date Comments Med Refill 11/16/2024 Encounter Details Date Type Department Care Team ([facility] Contact Info) Description 11/16/2024 Telephone [facility] CHC MED & PEDS [address] [place] [address] Ceci Tejeda MD [address] [place] [address] Med Refill Social History Tobacco Use Types Packs/Day Years [...] Telephone Encounter - Yaneth Jarquin RN - 11/17/2024 9:18 AM EST Noted thank you. * Telephone Encounter - Becki Storey - 11/16/2024 2:05 PM EST TC from pt requesting medication refill. Medications needing refill : Tirzepatide-Weight Management (Zepbound) solution auto-injector To be sent to: [facility] [place], [place] - [address] [facility] [address] [place] new dose increase documented in this encounter Plan of Treatment Not on file documented as of this encounter Visit Diagnoses Not on filedocumented in this encounter Additional Health Concerns Assessment Noted Time PHQ-9 Depression Total Score: 0 10/05/19 25 9:23 AM EST documented as of this encounter Care Teams Blueprint Tracer Relationship Specialty Start Date End Date Ceci Tejeda MD [address] [place] [address] PCP - General Family Medicine 09/15/18 documented as of this encounter
--- OUTSIDE RECORDS SUMMARY | 2025-05-12 11:11 | XMS_ITS | Encounter Summary ---
Author Organization [employer] Address [address] [place] [address] [address] [place] [address] Care Team Providers Care Concrete Worker Name Role Phone Ceci Tejeda MD Primary Care Provider [phone] Reason for Visit * Reason Onset Date Comments Med Refill 09/22/2024 Encounter Details Date Type Department Care Team ([facility] Contact Info) Description 09/22/2024 Refill [facility] CHC MED & PEDS [address] [place], [place] [phone] Ceci Tejeda MD [address] [place] [address] Class 3 severe obesity due to excess calories with body mass index (BMI) of 45.0 to 49.9 in adult, unspecified whether serious comorbidity present (CMS/HCC); Acquired hypothyroidism Social History Tobacco Use Types Packs/Day Years Used Date Smoking Tobacco: Never Passive Smoke Exposure: Never Smokeless Tobacco: Never Alcohol Use Standard Drinks/Week Comments Defer 0 (1 standard drink = 0.6 oz pur e alcohol) Depression Answer Date Recorded Patient Health Questionnaire-9 Score 11 11/07/2022 Housing Stability Answer Date Recorded What is your housing situation today? I have dalyca wood 07/15/[address] you [...] encounter Miscellaneous Notes * Telephone Encounter - Rodríguez Early MD - 09/28/2024 10:01 AM EST Changed to zepbound documented in this encounter Plan of Treatment Not on file documented as of this encounter Visit Diagnoses Diagnosis Class 3 severe obesity due to excess calories with body mass index (BMI) of 45.0 to 49.9 in adult, unspecified whether serious comorbidity present Acquired hypothyroidism Unspecified hypothyroidism documented in this encounter Additional Health Concerns Assessment Noted Time PHQ-9 Depression Total Score: 11 023 11:33 AM EST documented as of this encounter Care Teams Concrete Worker Relationship Specialty Start Date End Date Ceci Tejeda MD [address] [place] [address] PCP - General Family Medicine 09/15/18 documented as of this encounter
--- OUTSIDE RECORDS SUMMARY | 2025-05-12 11:11 | XMS_ITS | Encounter Summary ---
Author Organization [employer] Address [address] [facility] [address] [place] [address] Care Team Providers Care Child Life Specialist Name Role Phone Ceci Tejeda MD Primary Care Provider [phone] Reason for Visit * Reason Onset Date Comments [place] 10/14/2024 Encounter Details Date Type Department Care Team ([facility] Contact Info) Description 10/14/2024 Telephone [facility] CHC MED & PEDS [address] [place], [place] [phone] Ceci Tejeda MD [address] [place] [address] [place] Social History Tobacco Use Types Packs/Day Years [...] encounter Miscellaneous Notes * Telephone Encounter - Becki Storey - 10/14/2024 11:16 AM EST Tc from pt calling to inform a PA is needed for medication Tirzepatide-Weight Management (Zepbound)2.5 MG/0.5ML solution auto-injector. documented in this encounter Plan of Treatment Not on file documented as of this encounter Visit Diagnoses Not on filedocumented in this encounter Additional Health Concerns Assessment Noted Time PHQ-9 Depression Total Score: 0 10/05/19 25 9:23 AM EST documented as of this encounter Care Teams Child Life Specialist Relationship Specialty Start Date End Date Ceci Tejeda MD [address] [place] [address] PCP - General Family Medicine 09/15/18 documented as of this encounter
== END 2025-05-12 10:01 | disposition home or self-care (01) ==
LOC: HO.CHCLDS 10:00
PROVIDERS: Visit Provider Pediatrics
DX: E03.9 Hypothyroidism, unspecified (principal)
CPT/HCPCS: 36415; 84443